=== PATIENT | female | born 1985 | race Caucasian/White ===

== ENCOUNTER 2016-11-22 10:59 | Emergency (ER) | payer MEDICAID ==
[~2016-11-22] VITALS: Ht 160 cm; Wt 110.0 kg
[2016-11-22 11:06] VITALS: BP 122/71; PULSE 71; RESP 17; TEMP 98.4; O2SAT 97
--- NOTE | 2016-11-22 11:27 | PD ---
HPI Chief Complaint: Skin Problem Time Seen by Provider: 11:18 Travel History International Travel<30 days: No Contact w/Intl Traveler<30days: No Traveled to known affect area: No History of Present Illness HPI Examined in the presence of a female nurse. 31-year-old female presents for evaluation of skin irritation. Symptoms started 5 days ago, worsened 4 days ago when she went to the beach. The skin irritation is localized in the toe area. It is worse when wiping. She denies any rectal pain, fevers or chills, abdominal pain. She does note that there is some green discharge from the area yesterday, she has not noticed any today. She has no other complaints at this time. PFSH Past Medical History ?: Unknown Social History Alcohol Use: Yes (OCC) Tobacco Use: No Substance Use: No Allergies-Medications (Allergen,Severity, Reaction): Coded Allergies: Amoxicillin (Verified Allergy, Severe, Rash, 11/22/16) Penicillin (Verified Allergy, Severe, Rash, 11/22/16) Sesame Seed (Verified Allergy, Severe, 11/22/16) Reported Meds & Prescriptions Reported Meds & Active Scripts Active Diaper Rash (Zinc Oxide) 113 Gm Cream..g. 1 Applic TOPICAL QID 10 Days Review of Systems Except as stated in HPI: all other systems reviewed are Neg Physical Exam Narrative GENERAL: Well-developed well-nourished female in no acute distress SKIN: Warm and dry. This examination reveals some skin excoriation/laceration in the perineal region anterior to the rectum. There is no rectal fissuring. There is no erythema, edema, induration, fluctuance or drainage. CARDIOVASCULAR: Regular rate and rhythm. No murmur appreciated. RESPIRATORY: No accessory muscle use. Clear to auscultation. Breath sounds equal bilaterally. GASTROINTESTINAL: Abdomen soft, non-tender, nondistended. Hepatic and splenic margins not palpable. MUSCULOSKELETAL: No obvious deformities. No clubbing. No cyanosis. No edema. NEUROLOGICAL: Awake and alert. No obvious cranial nerve deficits. Motor grossly within normal limits. Normal speech. PSYCHIATRIC: Appropriate mood and affect; insight and judgment normal. Data Data Last Documented VS Vital Signs Date Time Temp Pulse Resp B/P Pulse Ox O2 Delivery O2 Flow Rate FiO2 11/22/16 11:06 98.4 71 17 122/71 97 MDM Medical Decision Making Medical Screen Exam Complete: Yes Emergency Medical Condition: Yes Medical Record Reviewed: Yes Differential Diagnosis Skin excoriation, anal fissure, cellulitis, external hemorrhoids, perirectal abscess Narrative Course 31-year-old female presents with an area of skin irritation in the perirectal region. Examination reveals an area of skin excoriation/laceration in the perineal region with no evidence of cellulitic change, abscess. There is no rectal involvement. This is likely secondary to skin breakdown, worsened by sweat, obesity. She has been using corn starch which seems to help. Dry. She is stable for discharge. Diagnosis Primary Impression: Maceration of skin Additional Instructions: Keep the skin is clean and dry as possible. Apply barrier cream as needed until healed. Return for any new or worsening symptoms. Med/Other Pt SpecificInfo: Prescription(s) given Scripts Zinc Oxide (Diaper Rash)113 Gm Cream..g.1 Applic TOPICAL QID 10 Days Ref 1 Prov:Adenike Vazquez MD 11/22/16 Disposition: 01 DISCHARGE HOME Condition: Stable Shiva Holloway November 22, 2016 11:27
[2016-11-22] MEDS ORDERED: [UNRECOGNIZED DRUG - CODE] TOPICAL (11:30)
== END 2016-11-22 11:44 | disposition home or self-care (01) ==
LOC: NEPD 10:59
DX: R23.8 Other skin changes (principal); E66.9 Obesity, unspecified
CPT/HCPCS: 99283

== ENCOUNTER 2017-11-17 13:01 | Emergency (ER) | payer MEDICAID, BC ==
[~2017-11-17] VITALS: Ht 160 cm; Wt 110.0 kg
[~2017-11-17 13:01] MED LIST: [UNRECOGNIZED DRUG - CODE] TOPICAL
[2017-11-17 13:45] VITALS: BP 132/84; PULSE 77; RESP 17; TEMP 98.1; O2SAT 98
[2017-11-17 15:51] LABS: AUTOMATED NEUTROPHIL # 4.6 TH/MM3 (1.8-7.7); BASOPHIL # 0.1 TH/MM3 (0-0.2); BASOPHIL % 0.6 % (0.0-2.0); EOSINOPHIL # 0.2 TH/MM3 (0-0.4); EOSINOPHIL % 2.9 % (0.0-4.0); HEMATOCRIT 39.5 % (35.0-46.0); HEMOGLOBIN 13.3 GM/DL (11.6-15.3); LYMPH % 36.2 % (9.0-44.0); LYMPHOCYTE # 3.1 TH/MM3 (1.0-4.8); MEAN CELL VOLUME 84.1 FL (80.0-100.0); MEAN CORPUSCULAR HEMOGLOBIN 28.2 PG (27.0-34.0); MEAN CORPUSCULAR HGB CONC 33.6 % (32.0-36.0); MEAN PLATELET VOLUME 8.5 FL (7.0-11.0); MONO % 6.4 % (0.0-8.0); MONOCYTE # 0.5 TH/MM3 (0-0.9); NEUT % 53.9 % (16.0-70.0); PLATELET COUNT 263 TH/MM3 (150-450); RED CELL DISTRIBUTION WIDTH 13.4 % (11.6-17.2); WHITE BLOOD COUNT 8.6 TH/MM3 (4.0-11.0)
[2017-11-17 16:08] LABS: ALBUMIN 3.2 GM/DL (3.4-5.0); ALT (GPT) 30 U/L (10-53); AST (GOT) 19 U/L (15-37); BICARBONATE 28.2 MEQ/L (21.0-32.0); BLOOD UREA NITROGEN 11 MG/DL (7-18); CALCIUM 8.6 MG/DL (8.5-10.1); CHLORIDE 105 MEQ/L (98-107); CREATININE 0.74 MG/DL (0.50-1.00); GLOMERULAR FILTRATION RATE 91 ML/MIN (>89); GLUCOSE,RANDOM 99 MG/DL (74-106); SODIUM (NA) 141 MEQ/L (136-145)
[2017-11-17 16:10] LABS: ALKALINE PHOSPHATASE 125 U/L (45-117); TOTAL BILIRUBIN ADULT 0.3 MG/DL (0.2-1.0); TOTAL PROTEIN 7.3 GM/DL (6.4-8.2)
[2017-11-17 16:11] LABS: BILIRUBIN, URINE NEG (NEG); BLOOD, URINE NEG (NEG); GLUCOSE,URINE NEG (NEG); KETONE, URINE NEG (NEG); MUCUS URINE FEW /lpf (OCC); NITRITE,URINE NEG (NEG); SQUAMOUS EPITHELIAL CELL URINE 1 /hpf (0-5); URINE COLOR YELLOW (YELLW/STRAW); URINE LEUKOCYTE ESTERASE NEG (NEG)
[2017-11-17] MEDS ORDERED: LOMO2.5T PO (17:12)
[2017-11-17] MEDS ORDERED: ZOFR4TAB3 SL (17:12)
--- NOTE | 2017-11-17 17:12 | PD ---
HPI Chief Complaint: GI Complaint Time Seen by Provider: 17:01 Travel History International Travel<30 days: No Contact w/Intl Traveler<30days: No Traveled to known affect area: No History of Present Illness HPI 32-year-old female complains of nausea vomiting diarrhea for 2 days. She a lettuce prior to onset and wonders if that might have caused her to become sick. She denies fever. No abnormal vaginal discharge or bleeding. No urinary complaint. No similar episode previously states the patient. No modifying factor. Patient wonders if she might be given a work note. Denies sick contacts. Denies past medical history. PFSH Past Medical History Migraines: Yes ?: Not Past Surgical History Surgical History: No Previous Surgery Social History Alcohol Use: Yes (OCC) Tobacco Use: No Substance Use: No Allergies-Medications (Allergen,Severity, Reaction): Coded Allergies: amoxicillin (Unverified Allergy, Severe, Rash, 11/17/17) penicillin G (Unverified Allergy, Severe, Rash, 11/17/17) sesame seed (Unverified Allergy, Severe, 11/17/17) Reported Meds & Prescriptions Reported Meds & Active Scripts Active Lomotil (Diphenoxylate-Atropine) 2.5-0.025 Mg Tab 1 Tab PO Q6H PRN Zofran Odt (Ondansetron Odt) 4 Mg Tab 4 Mg SL Q8HR PRN Diaper Rash (Zinc Oxide) 113 Gm Cream..g. 1 Applic TOPICAL QID 10 Days Review of Systems Except as stated in HPI: all other systems reviewed are Neg General / Constitutional: No: Fever Eyes: No: Blurred Vision Physical Exam Narrative GENERAL: 32-year-old female pleasant well-nourished well-developed, BMI is 43 Vital Signs Date Time Temp Pulse Resp B/P (MAP) Pulse Ox O2 Delivery O2 Flow Rate FiO2 11/17/17 13:45 98.1 77 17 132/84 (100) 98 SKIN: Warm and dry. HEAD: Atraumatic. Normocephalic. EYES: Pupils equal and round. No scleral icterus. No injection or drainage. ENT: No nasal bleeding or discharge. Mucous membranes pink and moist. NECK: Trachea midline. No JVD. CARDIOVASCULAR: Regular rate and rhythm. RESPIRATORY: No accessory muscle use. Clear to auscultation. Breath sounds equal bilaterally. GASTROINTESTINAL: Abdomen soft, non-tender, nondistended. Hepatic and splenic margins not palpable. MUSCULOSKELETAL: Extremities without clubbing, cyanosis, or edema. No obvious deformities. NEUROLOGICAL: Awake and alert. No obvious cranial nerve deficits. Motor grossly within normal limits. Five out of 5 muscle strength in the arms and legs. Normal speech. PSYCHIATRIC: Appropriate mood and affect; insight and judgment normal. Data Data Last Documented VS Vital Signs Date Time Temp Pulse Resp B/P (MAP) Pulse Ox O2 Delivery O2 Flow Rate FiO2 11/17/17 13:45 98.1 77 17 132/84 (100) 98 Orders Orders Complete Blood Count With Diff (11/17/17 13:46) Comprehensive Metabolic Panel (11/17/17 13:46) Urinalysis - C+S If Indicated (11/17/17 13:46) Ed Urine Pregnancytest Poc (11/17/17 13:46) Lipase (11/17/17 13:46) Ed Discharge Order (11/17/17 17:12) Labs Laboratory Tests Test 11/17/17 14:40 11/17/17 15:20 Urine Color YELLOW Urine Turbidity CLEAR Urine pH 5.0 Urine Specific [place] 1.015 Urine Protein NEG mg/dL Urine Glucose (UA) NEG mg/dL Urine Ketones NEG mg/dL Urine Occult Blood NEG Urine Nitrite NEG Urine Bilirubin NEG Urine Urobilinogen LESS THAN 2.0 MG/DL Urine Leukocyte Esterase NEG Urine Squamous Epithelial Cells 1 /hpf Urine Mucus FEW /lpf Microscopic Urinalysis Comment CULT NOT INDICATED White Blood Count 8.6 TH/MM3 Red Blood Count 4.70 MIL/MM3 Hemoglobin 13.3 GM/DL Hematocrit 39.5 % Mean Corpuscular Volume 84.1 FL Mean Corpuscular Hemoglobin 28.2 PG Mean Corpuscular Hemoglobin Concent 33.6 % Red Cell Distribution Width 13.4 % Platelet Count 263 TH/MM3 Mean Platelet Volume 8.5 FL Neutrophils (%) (Auto) 53.9 % Lymphocytes (%) (Auto) 36.2 % Monocytes (%) (Auto) 6.4 % Eosinophils (%) (Auto) 2.9 % Basophils (%) (Auto) 0.6 % Neutrophils # (Auto) 4.6 TH/MM3 Lymphocytes # (Auto) 3.1 TH/MM3 Monocytes # (Auto) 0.5 TH/MM3 Eosinophils # (Auto) 0.2 TH/MM3 Basophils # (Auto) 0.1 TH/MM3 CBC Comment DIFF FINAL Differential Comment Blood Urea Nitrogen 11 MG/DL Creatinine 0.74 MG/DL Random Glucose 99 MG/DL Total Protein 7.3 GM/DL Albumin 3.2 GM/DL Calcium Level 8.6 MG/DL Alkaline Phosphatase 125 U/L Aspartate Amino Transf (AST/SGOT) 19 U/L Alanine Aminotransferase (ALT/SGPT) 30 U/L Total Bilirubin 0.3 MG/DL Sodium Level 141 MEQ/L Potassium Level 3.6 MEQ/L Chloride Level 105 MEQ/L Carbon Dioxide Level 28.2 MEQ/L Anion Gap 8 MEQ/L Estimat Glomerular Filtration Rate 91 ML/MIN Lipase 130 U/L [facility] Medical Decision Making Medical Screen Exam Complete: Yes Emergency Medical Condition: Yes Medical Record Reviewed: Yes Differential Diagnosis Constipation, Gastritis, Acute Cholecystitis, Biliary Colic, Pancreatitis, MONK , Hepatitis, Bowel Obstruction, Cystitis, Mesenteric Ischemia, AAA, Appendicitis , Renal Stone/Hydronephrosis, GERD, perforated viscous Narrative Course CBC & BMP Diagram 11/17/17 15:20 Total Protein 7.3, Albumin 3.2 L, Calcium Level 8.6, Alkaline Phosphatase 125 H , Aspartate Amino Transf (AST/SGOT) 19, Alanine Aminotransferase (ALT/SGPT) 30, Total Bilirubin 0.3 Urinalysis shows no UTI Urine is negative The patient is well-appearing. Work note provided at her request. Scripts as below. Diagnosis Primary Impression: Nausea vomiting and diarrhea Referrals: Primary Care Physician call for appointment Med/Other Pt SpecificInfo: Prescription(s) given Scripts Diphenoxylate-Atropine (Lomotil) 2.5-0.025 Mg Tab 1 TAB PO Q6H Y for DIARRHEA, #6 TAB 0 Refills Prov: Mitchel Kohler MD 11/17/17 Ondansetron Odt (Zofran Odt) 4 Mg Tab 4 MG SL Q8HR Y for Nausea/Vomiting, #10 TAB 0 Refills Prov: Mitchel Kohler MD 11/17/17 Disposition: 01 DISCHARGE HOME Condition: Stable Mitchel Kohler MD November 17, 2017 17:12
== END 2017-11-17 17:31 | disposition home or self-care (01) ==
LOC: NEPD 13:01
DX: R11.2 Nausea with vomiting, unspecified (principal); R19.7 Diarrhea, unspecified
CPT/HCPCS: 80053; 81001; 83690; 84703; 85025; 99283